=== PATIENT | male | born 1950 | race Caucasian/White ===

== ENCOUNTER → 2018-05-28 | Outpatient (CLI) | payer OTHER ==
[~2018-05-28] MED LIST: CARV-39 PO; CETI10TA24 PO; FINA5TAB4 PO; MULT-516 PO; RANI300T PO; TAMS0.4C2 PO
[2018-05-28 15:15] LABS: BASOPHILS # (AUTO) 0.06 x10^3/uL (0-0.1); BASOPHILS % (AUTO) 1 % (0-1); EOSINOPHILS # (AUTO) 0.29 x10^3/uL (0-0.4); EOSINOPHILS % (AUTO) 4 % (1-7); LYMPHOCYTES # (AUTO) 1.92 x10^3/uL (1-3.4); LYMPHOCYTES % (AUTO) 28 % (22-44); MD NO; MEAN CORPUSCULAR VOLUME 88.1 fL (81-97); MEAN PLATELET VOLUME 8.8 fL (7.4-10.4); MONOCYTES # (AUTO) 0.87 x10^3/uL (0.2-0.8); MONOCYTES % (AUTO) 13 % (2-9); NEUTROPHILS # (AUTO) 3.64 x10^3/uL (1.8-6.8); NEUTROPHILS % (AUTO) 54 % (42-75); PLATELET COUNT 267 x10^3/uL (130-400); RED BLOOD COUNT 4.59 x10^6/uL (4.38-5.82); RED CELL DISTRIBUTION WIDTH 15.6 % (9.4-14.8)
[2018-05-28 15:23] LABS: ALANINE AMINOTRANSFERASE 15 U/L (12-78); ALBUMIN 3.2 g/dL (3.4-5.0); ANION GAP 8 mmol/L (5-15); CALCIUM 8.3 mg/dL (8.5-10.1); CHLORIDE 107 mmol/L (98-107); CREATININE 2.11 mg/dL (0.7-1.3)
[2018-05-28 15:25] LABS: ALKALINE PHOSPHATASE 95 U/L (45-117); BILIRUBIN,TOTAL 0.4 mg/dL (0.2-1.0); TOTAL PROTEIN 6.6 g/dL (6.4-8.2)
[2018-05-28 15:39] LABS: INTERNATIONAL NORMALIZED RATIO 1.01 (0.93-1.1); PROTHROMBIN TIME 10.5 Seconds (9.6-11.5)
== END | disposition home or self-care (01) ==
LOC: STAR 14:02
PROVIDERS: ATTEND Urology
DX: Z01.812 Encounter for preprocedural laboratory examination (principal); R33.9 Retention of urine, unspecified; D48.61 Neoplasm of uncertain behavior of right breast
CPT/HCPCS: 36415; 80053; 85025; 85610; 85730; 93005

== ENCOUNTER → 2018-06-09 | Outpatient (CLI) | payer OTHER ==
[~2018-06-09] MED LIST changes: +REGADENOSON 0.4 MG/5 ML SYRINGE ONE
== END | disposition home or self-care (01) ==
LOC: CVU 10:42
PROVIDERS: ATTEND Internal Medicine Cardiovascular Disease
DX: I08.0 Rheumatic disorders of both mitral and aortic valves (principal); I48.1 Persistent atrial fibrillation; I10 Essential (primary) hypertension
CPT/HCPCS: 78452; 93017; 93306; A9502; J2785

== ENCOUNTER 2018-06-20 06:53 | Day surgery (SDC) | payer OTHER ==
[~2018-06-20] VITALS: Ht 175.3 cm; Wt 109.5 kg
[~2018-06-20 06:53] MED LIST changes: -REGADENOSON 0.4 MG/5 ML SYRINGE ONE
[2018-06-20] MEDS ORDERED: TERA5CAP3 PO (07:45)
[2018-06-20 07:46] VITALS: BP 164/123
[2018-06-20] MEDS ORDERED: DIPHENHYDRAMINE 50 MG/ML, 1ML IVPush ONE (08:00)
[2018-06-20 08:26] LABS: BASOPHILS # (AUTO) 0.05 x10^3/uL (0-0.1); BASOPHILS % (AUTO) 1 % (0-1); EOSINOPHILS # (AUTO) 0.28 x10^3/uL (0-0.4); EOSINOPHILS % (AUTO) 5 % (1-7); LYMPHOCYTES % (AUTO) 22 % (22-44); MD NO; MEAN CORPUSCULAR HEMOGLOBIN 28.4 pg (27.5-34.5); MEAN CORPUSCULAR HGB CONC 32.9 g/dL (33.2-36.2); MEAN CORPUSCULAR VOLUME 86.4 fL (81-97); MEAN PLATELET VOLUME 8.9 fL (7.4-10.4); MONOCYTES # (AUTO) 0.61 x10^3/uL (0.2-0.8); MONOCYTES % (AUTO) 10 % (2-9); NEUTROPHILS # (AUTO) 3.98 x10^3/uL (1.8-6.8); NEUTROPHILS % (AUTO) 63 % (42-75); PLATELET COUNT 238 x10^3/uL (130-400); RED BLOOD COUNT 4.93 x10^6/uL (4.38-5.82)
[2018-06-20 08:30] LABS: ANION GAP 8 mmol/L (5-15); CALCIUM 8.8 mg/dL (8.5-10.1); CHLORIDE 108 mmol/L (98-107); CREATININE 2.14 mg/dL (0.7-1.3)
[2018-06-20] MEDS ORDERED: MIDAZOLAM 1 MG/ML, 5ML ONE (08:52)
[2018-06-20] MEDS ORDERED: FENTANYL PF 100 MCG/2ML ONE (08:52)
[2018-06-20] MEDS ORDERED: TICAGRELOR 90 MG TABLET ONE (08:53)
[2018-06-20] MEDS ORDERED: HEPARIN 1,000 UNITS/ML, 10ML ONE (08:53)
[2018-06-20] MEDS ORDERED: VERAPAMIL 2.5 MG/ML, 2ML ONE (08:53)
[2018-06-20] MEDS ORDERED: NITROGLYCERIN 5 MG/ML, 10ML ONE (08:53)
[2018-06-20] MEDS ORDERED: BIVALIRUDIN 250 MG ONE (08:53)
[2018-06-20] MEDS ORDERED: SODIUM CHLORIDE 0.9% 1,000 ML IV SCH (10:05)
== END 2018-06-20 13:57 | disposition home or self-care (01) ==
LOC: CACL 06:53
PROVIDERS: ATTEND Internal Medicine Cardiovascular Disease
DX: I25.10 Atherosclerotic heart disease of native coronary artery without angina pectoris (principal); I10 Essential (primary) hypertension; I48.1 Persistent atrial fibrillation; Z01.810 Encounter for preprocedural cardiovascular examination; Z79.899 Other long term (current) drug therapy
CPT/HCPCS: 36415; 80048; 85025; 93458; 99156; 99157; C1760; C1769; C1894; J1644; J2250; J3010; Q9967; J0583

== ENCOUNTER 2018-09-03 11:09 | Day surgery (SDC) | payer OTHER ==
[~2018-09-03] VITALS: Ht 175.3 cm; Wt 111.4 kg
[~2018-09-03 11:09] MED LIST changes: +TERA5CAP3 PO
[2018-09-03] MEDS ORDERED: MEPERIDINE/PF 25MG/0.5ML IVPush PRN (11:30)
[2018-09-03] MEDS ORDERED: PROMETHAZINE 25 MG/ML, 1ML IV PRN (11:30)
[2018-09-03] MEDS ORDERED: FENTANYL PF 100 MCG/2ML IV PRN (11:30)
[2018-09-03] MEDS ORDERED: DIPHENHYDRAMINE 50 MG/ML, 1ML IVPush PRN (11:30)
[2018-09-03] MEDS ORDERED: ACETAMINOPHEN 325 MG TABLET PO PRN (11:30)
[2018-09-03] MEDS ORDERED: HALOPERIDOL 5 MG/ML IV PRN (11:30)
[2018-09-03] MEDS ORDERED: hydrALAzine 20 MG/ML, 1ML IV PRN (11:30)
[2018-09-03] MEDS ORDERED: OXYcodone 5 MG/5 ML ORAL.SOL UDC PO PRN (11:30)
[2018-09-03] MEDS ORDERED: LABETALOL 5MG/ML, 20ML IV PRN (11:30)
[2018-09-03] MEDS ORDERED: HYDROmorphone 2 MG/ML, 1ML IVPush PRN (11:30)
[2018-09-03] MEDS ORDERED: SODIUM CHLORIDE 0.9% 1,000 ML IV SCH (11:35)
[2018-09-03 11:36] VITALS: BP 151/90
[2018-09-03] MEDS ORDERED: GENTAMICIN 80 MG/2 ML ONE (12:44)
[2018-09-03] MEDS ORDERED: MIDAZOLAM 1 MG/ML, 2ML ONE (12:47)
[2018-09-03] MEDS ORDERED: FENTANYL PF 100 MCG/2ML ONE (12:47)
[2018-09-03] MEDS ORDERED: ONDANSETRON 2MG/ML, 2ML ONE (12:52)
[2018-09-03] MEDS ORDERED: DEXAMETHASONE 4 MG/ML, 1ML ONE (12:52)
[2018-09-03] MEDS ORDERED: PROPOFOL 10 MG/ML, 20ML ONE (12:52)
[2018-09-03] MEDS ORDERED: CIPROFLOXACIN 400MG/200ML PMX ONE (12:52)
== END 2018-09-03 17:15 | disposition home or self-care (01) ==
LOC: OUT 11:09
PROVIDERS: ATTEND Urology
DX: N40.1 Benign prostatic hyperplasia with lower urinary tract symptoms (principal); R33.8 Other retention of urine; I10 Essential (primary) hypertension; K21.9 Gastro-esophageal reflux disease without esophagitis; I48.91 Unspecified atrial fibrillation; Z98.890 Other specified postprocedural states; Z79.899 Other long term (current) drug therapy; Z88.8 Allergy status to other drugs, medicaments and biological substances
CPT/HCPCS: 52601; 88305; J0744; J1100; J1580; J2250; J2405; J2704; J3010; J7030